=== PATIENT | female | born 1935 | race Caucasian/White ===

== ENCOUNTER 2017-10-20 17:24 | Inpatient (IN) | payer MEDICARE ==
[~2017-10-20] VITALS: Ht 165.1 cm; Wt 56.7 kg
--- NOTE | 2017-10-20 00:45 | NUR ---
RECEIVED A CALL FROM SHAHLA, PHARMACY REGARDING HALDOL IM X 1 ORDER, PER SHAHLA TO CLARIFY WITH MD IF THE MD WANTS HALDOL LACTATE OR HALDOL DECANOATE, PLACED A CALL AND SPOKE TO YEISON MIRANDA PER RUBEN SHE DIDN'T ORDER HALDOL, CALLED PHARMACY AFTER HOURS AND SHAHLA, PHARMACY INFORMED. Addendum: 10/21/17 at 0454 by HILDA MATOS RN INCORRECT TIME OF DOCUMENTATION Addendum: 10/21/17 at 0455 by HILDA MATOS RN INCORRECT DATE ENTERED
[2017-10-20] MEDS ORDERED: AMIN30LI4 PO (17:35)
[2017-10-20] MEDS ORDERED: SACC250C PO (17:35)
[2017-10-20] MEDS ORDERED: AMLO10TA6 PO (17:35)
[2017-10-20] MEDS ORDERED: ACET-868 PO (17:35)
[2017-10-20] MEDS ORDERED: BENA20TA9 PO (17:35)
[2017-10-20] MEDS ORDERED: CYCL30DR EACHEYE (17:35)
[2017-10-20] MEDS ORDERED: MIRT15TA PO (17:35)
[2017-10-20] MEDS ORDERED: POLY17PO4 PO (17:35)
[2017-10-20] MEDS ORDERED: MAGN400O6 PO (17:35)
[2017-10-20] MEDS ORDERED: LACT-215 PO (17:35)
[2017-10-20] MEDS ORDERED: BISA10SU8 RC (17:35)
[2017-10-20] MEDS ORDERED: LORA0.5T PO (17:35)
[2017-10-20] MEDS ORDERED: DOCU-141 PO (17:35)
[2017-10-20] MEDS ORDERED: NA P133E RC (17:35)
[2017-10-20] MEDS ORDERED: QUET25TA PO ×2 (17:35)
[2017-10-20] MEDS ORDERED: FERR325T23 PO (17:35)
[2017-10-20] MEDS ORDERED: MULT-447 PO (17:35)
[2017-10-20] MEDS ORDERED: PANT40TA2 PO (17:35)
[2017-10-20] MEDS ORDERED: RIVA1PAT3 TD (17:36)
--- NOTE | 2017-10-20 18:10 | NUR ---
SPOKE TO DAUGHTER OVER THE PHONE AND UPDATED WITH POC. MD MADE AWARE THAT PT IS AGITATED BOTH VERBALLY AND PHYSICALLY AND UNABLE TO DO IV INSERTION AT THIS TIME.
--- NOTE | 2017-10-20 18:12 | NUR ---
[facility]
[2017-10-20] MEDS ORDERED: OLANZAPINE 10 MG VIAL IM ONE ×2 (18:34→19:00)
--- NOTE | 2017-10-20 18:37 | NUR ---
MELINDA AT BS.
[2017-10-20 19:26] LABS: BASOPHILS # (AUTO) 0.1 /CMM (0.0-0.2); EOSINOPHILS % (AUTO) 1.5 % (0.0-6.0); HEMATOCRIT 35 % (33-45); HEMOGLOBIN 12.1 g/dL (11.5-14.8); LYMPHOCYTES # (AUTO) 2.3 /CMM (0.8-4.8); LYMPHOCYTES % (AUTO) 24.4 % (20.0-44.0); MEAN CORPUSCULAR HGB CONC 35 g/dl (31.0-36.0); MEAN CORPUSCULAR VOLUME 92 fL (82-100); MONOCYTES # (AUTO) 0.8 /CMM (0.1-1.30); MONOCYTES % (AUTO) 8.8 % (2.0-12.0); NEUTROPHILS % (AUTO) 64.3 % (43.0-81.0); PLATELET COUNT (AUTO) 387 /CMM (150-450); RDW COEFFICIENT OF VARIATION 12.8 (11.5-15.0); RED BLOOD CELL COUNT(AUTO) 3.81 MIL/uL (4.0-5.2); WHITE BLOOD COUNT (AUTO) 9.3 K/uL (4.3-11.0)
[2017-10-20] MEDS ORDERED: HALOPERIDOL DECANOATE IM 100 MG/ML AMPUL IM ONE (19:30)
[2017-10-20 19:39] LABS: APPEARANCE,URINE Cloudy (CLEAR); BILIRUBIN,URINE SMALL (NEGATIVE); BLOOD, URINE Large Ery/uL (NEGATIVE); COLOR,URINE Brown (YELLOW); KETONES,URINE Negative (NEGATIVE); LEUKOCYTE ESTERASE ,URINE Large (NEGATIVE); NITRITE, URINE Positive (NEGATIVE); PROTEIN,URINE 100 mg/dl (NEGATIVE); UGLUCOSE Negative (NEGATIVE)
[2017-10-20 19:40] LABS: CALCIUM, SERUM 9.4 mg/dL (8.5-10.1); CARBON DIOXIDE 25 mmol/L (21-32); CHLORIDE 105 mmol/L (98-107); CREATININE 0.9 mg/dL (0.6-1.3); GLUCOSE 93 mg/dL (74-106); SODIUM SERUM 141 mmol/L (136-145); UREA NITROGEN, BLOOD 26 mg/dL (7-18)
[2017-10-20 19:43] LABS: INR 0.94 (0.85-1.15)
[2017-10-20 19:49] LABS: TROPONIN I < 0.017 ng/mL (0.00-0.056)
[2017-10-20 19:53] LABS: BACTERIA,URINE 4+ /HPF (None Seen); RBC,URINE TOO NUMEROUS TO COUN /HPF (0-2); WBC,URINE TOO NUMEROUS TO COUN /HPF (0-3)
[2017-10-20 19:54] LABS: SQUAMOUS EPITHELIAL CELL,UR Few /HPF (None Seen)
[2017-10-20] MEDS ORDERED: ACETAMINOPHEN 325 MG TABLET PO PRN (21:00)
[2017-10-20] MEDS ORDERED: MAGNESIUM HYDROXIDE 30 ML UDC PO PRN (21:00)
[2017-10-20] MEDS ORDERED: MAG HYDROX/AL HYDROX/SIMETH 30 ML UDC PO PRN (21:00)
[2017-10-20] MEDS ORDERED: Z GUARD REMEDY 2 OZ OINT TP PRN (21:00)
[2017-10-20] MEDS ORDERED: HYDROCODONE/APAP 5/325MG 1 EACH TABLET PO PRN (21:00)
[2017-10-20] MEDS ORDERED: ONDANSETRON HCL/PF 4 MG/2 ML VIAL IVP PRN (21:00)
--- NOTE | 2017-10-20 21:10 | NUR ---
REPORT GIVEN TO HILDA HATHAWAY FOR MS 202.
[2017-10-20 21:40] VITALS: BP 140/62
--- NOTE | 2017-10-20 21:40 | NUR ---
MS RN NOTES RECEIVED PT FROM ER VIA STRETCHER. TRANSFERRED TO BED SAFELY. PT IS AWAKE, A/O X 1,CONFUSED AND VERBALLY RESPONSIVE. PT WITH EPISODE OF BEING AGGRESSIVE, SCREAMING AND HITTING. IV SITE ON RFA G # 20 INTACT AND PATENT, NO S/S OF INFILTRATION NOTED. FC IS INTACT AND PATENT, DRAINING WELL WITH YELLOW URINE. BODY CHECK DONE. DENIES ANY PAIN OR DISCOMFORT AT THIS TIME. ALL NEEDS ATTENDED AND MET. KEPT COMFORTABLE. SAFETY PRECAUTIONS OBSERVED. CALL LIGHT WITHIN REACH. WILL CONT TO MONITOR PT CLOSELY.
[2017-10-20 22:00] VITALS: BP 140/62
[2017-10-20] MEDS ORDERED: CEFTRIAXONE 1 G VIAL ONE (22:35)
[2017-10-20] MEDS: IV D5/0.45 NACL 1,000 ML IV PRN (22:40)
[2017-10-20] MEDS: CEFTRIAXONE 1 G in IV NS 0.9% 50 ML IV SCH (22:41)
--- NOTE | 2017-10-20 23:00 | NUR ---
PT WITH EPISODES OF TALKING TO HER SELF AND SCREAMING . TALKED TO THE PT IN A CALMLY MANNER. SAFETY PRECAUTIONS OBSERVED. WILL MONITOR PT CLOSELY.
--- NOTE | 2017-10-21 00:45 | NUR ---
RECEIVED A CALL FROM SHAHLA, PHARMACY REGARDING HALDOL IM X 1 ORDER, PER SHAHLA TO CLARIFY WITH MD IF THE MD WANTS HALDOL LACTATE OR HALDOL DECANOATE, PLACED A CALL AND SPOKE TO YEISON MIRANDA PER RUBEN SHE DIDN'T ORDER HALDOL, CALLED PHARMACY AFTER HOURS AND SHAHLA, PHARMACY INFORMED.
[2017-10-21] MEDS ORDERED: MAGNESIUM HYDROXIDE 30 ML UDC PO PRN (02:00)
[2017-10-21] MEDS ORDERED: NA PHOS,M-B/NA PHOS,DI-BA 1 EA ENEMA RC PRN (02:00)
[2017-10-21] MEDS ORDERED: BISACODYL SUPP (10 MG) 10 MG/SUPP.RECT SUPP.RECT RC PRN (02:00)
--- NOTE | 2017-10-21 04:55 | NUR ---
[facility] A CALL TO [facility] AND SPOKE WITH PRADEEP SNIDER REGARDING DATE WHEN PNA AND FLU VACCINE WAS GIVEN .
--- NOTE | 2017-10-21 05:15 | NUR ---
CLARIFIED WITH YEISON MIRANDA IF PT IS FOR TELE OR MED SURG, PER YEISON MIRANDA ADMIT PT TO MED SURG.
--- NOTE | 2017-10-21 06:31 | NUR ---
MS RN NOTES PT IS AWAKE, A/O X 1, CONFUSED AND VERBALLY RESPONSIVE. PT WITH ON AND OFF EPISODE OF BEING AGGRESSIVE, SCREAMING AND HITTING. IV SITE ON RFA G # 20 INTACT AND PATENT, NO S/S OF INFILTRATION NOTED. IVF INFUSING WELL. FC IS INTACT AND PATENT, DRAINING WELL WITH YELLOW URINE. DENIES ANY PAIN OR DISCOMFORT AT THIS TIME. ALL NEEDS ATTENDED AND MET. KEPT COMFORTABLE. SAFETY PRECAUTIONS OBSERVED. CALL LIGHT WITHIN REACH. WILL ENDORSE TO NEXT SHIFT FRO FINN.
[2017-10-21 07:17] LABS: BASOPHILS % (AUTO) 0.5 % (0.0-2.0); EOSINOPHILS % (AUTO) 2.6 % (0.0-6.0); HEMATOCRIT 35 % (33-45); HEMOGLOBIN 11.9 g/dL (11.5-14.8); LYMPHOCYTES # (AUTO) 1.6 /CMM (0.8-4.8); LYMPHOCYTES % (AUTO) 22.2 % (20.0-44.0); MEAN CORPUSCULAR HGB CONC 34 g/dl (31.0-36.0); MEAN CORPUSCULAR VOLUME 94 fL (82-100); MONOCYTES # (AUTO) 0.8 /CMM (0.1-1.30); MONOCYTES % (AUTO) 10.6 % (2.0-12.0); NEUTROPHILS # (AUTO) 4.7 /CMM (1.8-8.9); NEUTROPHILS % (AUTO) 64.1 % (43.0-81.0); PLATELET COUNT (AUTO) 304 /CMM (150-450); RDW COEFFICIENT OF VARIATION 14.1 (11.5-15.0); RED BLOOD CELL COUNT(AUTO) 3.69 MIL/uL (4.0-5.2); WHITE BLOOD COUNT (AUTO) 7.3 K/uL (4.3-11.0)
--- NOTE | 2017-10-21 07:30 | NUR ---
RN OPEN NOTES Received report from night baker nurse. patient is in bed, confused, combative. bed in low position, locked and two side rails are up. call light within reach for safety. no signs and symptoms of distress. will continue to assess and monitor patient
[2017-10-21 07:44] LABS: CALCIUM, SERUM 8.7 mg/dL (8.5-10.1); CARBON DIOXIDE 28 mmol/L (21-32); CHLORIDE 106 mmol/L (98-107); CREATININE 0.8 mg/dL (0.6-1.3); GLUCOSE 86 mg/dL (74-106); POTASSIUM 3.1 mmol/L (3.5-5.1); SODIUM SERUM 142 mmol/L (136-145); UREA NITROGEN, BLOOD 20 mg/dL (7-18)
[2017-10-21] MEDS: DOCUSATE SODIUM 100 MG CAPSULE PO SCH ×2 (07:47→09:04)
[2017-10-21] MEDS: BOOST PLUS FOOD-CHOCLATE 237 ML BOX PO SCH ×3 (07:47→16:18)
[2017-10-21] MEDS: QUETIAPINE FUMARATE 25 MG TABLET PO SCH ×4 (07:48→16:18)
[2017-10-21] MEDS: PROSOURCE / PROSTAT (PYXIS) 30 ML UDC PO SCH ×2 (07:48→09:03)
[2017-10-21] MEDS: MULTIVIT, IRON, MIN NO. 8, FA 1 TAB PO SCH ×2 (07:48→09:04)
[2017-10-21] MEDS: AMLODIPINE BESYLATE 10 MG TABLET PO SCH ×2 (07:48→09:04)
[2017-10-21] MEDS: BENAZEPRIL HCL 20 MG TABLET PO SCH ×2 (07:48→09:03)
[2017-10-21] MEDS: POLYETHYLENE GLYCOL 3350 17 GM POWD.PACK PO SCH ×2 (07:48→09:03)
[2017-10-21] MEDS: FERROUS SULFATE (325 MG) 325 MG/TAB TABLET PO SCH ×2 (07:48→09:04)
[2017-10-21 07:55] LABS: CHOLESTEROL 182 mg/dL (<200); HDL CHOLESTEROL 51 mg/dL (40-60); LDL 114 mg/dL (0-99); THYROID STIMULATING HORMONE 1.589 uIU/mL (0.358-3.74); TRIGLYCERIDES 130 mg/dL (30-150)
[2017-10-21 08:08] VITALS: BP 119/78
[2017-10-21] MEDS ORDERED: Medication Not On Formulary EA (Cyclosporine (Restasis) 1 DROP) EACHEYE SCH (09:00)
[2017-10-21] MEDS ORDERED: Medication Not On Formulary EA (Saccharomyces Boulardii (Florastor) 250 MG) PO SCH (09:00)
[2017-10-21] MEDS ORDERED: PANTOPRAZOLE 40 MG VIAL IV SCH (09:00)
[2017-10-21] MEDS: RIVASTIGMINE TARTRATE 4.6 MG PATCH.TD24 TD SCH (09:04)
--- NOTE | 2017-10-21 09:32 | NUR ---
WOUND CARE CONSULT: UNABLE TO SEE SACRAL AREA DUE TO PT AGITATED AND COMBATIVE AT TIMES. PT MOVES ABOUT IN BED FREQUENTLY. RECOMMENDATIONS MADE FOR SKIN PROTECTION. PT IS VERY THIN AND BONY. ALL SKIN PROTECTION MEASURES IN PLACE. WILL SEE PRNAbdifatah GARNICA IN AGREEMENT WITH PLAN OF CARE.
[2017-10-21] MEDS ORDERED: POTASSIUM CHLORIDE 10 MEQ/50 ML PREMIXED IVPB FOR PERIPHERAL LINE IV ONE (10:00)
[2017-10-21] MEDS ORDERED: LORAZEPAM 1 MG TABLET PO PRN (10:30)
[2017-10-21] MEDS: Potassium Chloride 10 MEQ in IV D5W 50 ML IV SCH ×4 (11:55→14:29)
[2017-10-21] MEDS: IV D5/0.45 NACL 1,000 ML IV PRN (12:59)
[2017-10-21 16:22] VITALS: BP 103/61
--- NOTE | 2017-10-21 17:00 | NUR ---
IV SITE INFILTRATED. PATIENT IS COMBATIVE AND REFUSING TO LET ME REMOVED THE IV SITE AND START A NEW ONE
--- NOTE | 2017-10-21 17:40 | NUR ---
CALLED ER AND REQUESTED HELP FROM ER MALE NURSE TO START A NEW IV DUE TO PATIENT BEING COMBATIVE. THEY WILL TRY TO SEND SOMEONE UP
--- NOTE | 2017-10-21 18:15 | NUR ---
NEW IV STARTED. PATIENT WAS AGITATED AND COMBATIVE.
--- NOTE | 2017-10-21 18:30 | NUR ---
DR GARCIA NOTIFIED REGARDING BLOOD CULTURE POSITIVE FOR [facility]. PENDING REPLY
--- NOTE | 2017-10-21 18:40 | NUR ---
DR GARCIA REPLIED: "OK TY"
--- NOTE | 2017-10-21 18:50 | NUR ---
RN CLOSING NOTES PATIENT IS IN BED, AWAKE. AGITATED AND COMBATIVE. ALL PATIENT NEEDS ANTICIPATED AND ATTENDED FOR. BED IN LOW POSITION, LOCKED AND TWO SIDE RAILS ARE UP. CALL LIGHT WITHIN REACH FOR SAFETY. NO NEW CHANGES DURING THE SHIFT. NO SIGNS AND SYMPTOMS OF DISTRESS. WILL ENDORSE TO BUILD AUTOMATION ENGINEER NURSE
--- NOTE | 2017-10-21 19:30 | NUR ---
MS RN OPENING NOTES: PATIENT IN BED, AOX1, ON ROOM AIR, BREATHING EVEN AND UNLABORED, APPEARS CALM AND THIS TIME, BUT CONFUSED. PIV OVER RFA G 22 INTACT AND INFUSING WELL WITH D5 1/2 NS RUNNING AT 75 ML/HR, WITH SLEEVE IN PLACE. GRACE CATHETER IN PLACE DRAINING CLEAR YELLOW URINE. PROVIDED FOR COMFORT AND SAFETY. BED IN LOWEST AND LOCKED POSITION, SIDERAILS UP X 3, BED ALARMS ON. WILL CONT TO MONITOR.
[2017-10-21 20:00] VITALS: BP 98/60
[2017-10-21] MEDS: CEFTRIAXONE 1 G in IV NS 0.9% 50 ML IV SCH (20:39)
[2017-10-21 21:30] VITALS: BP 118/49
[2017-10-21] MEDS: MIRTAZAPINE 15 MG TABLET PO SCH (21:34)
[2017-10-21] MEDS: QUETIAPINE FUMARATE 100 MG TABLET PO SCH (21:57)
--- NOTE | 2017-10-21 21:57 | NUR ---
RN NOTES: CALLED MANAGER DISCOVERY PHARMACIST, SEROQUEL 150 MG HS CANNOT BE SCANNED, KEPT SAYING UNKNOWN NDC NUMBER. SPOKE TO JUAN CARLOS (PHARMACIST MANAGER DISCOVERY), VERIFIED MEDICATION WITH HIM. PER PHARMACIST, OK TO GIVE BUT HAVE IT CHECKED WITH ANOTHER RN. VERIFIED MEDICATION AND DOSE WITH MAG STEVENS.
[2017-10-21] MEDS ORDERED: QUETIAPINE FUMARATE 25 MG TABLET PO SCH (22:00)
--- NOTE | 2017-10-22 05:00 | NUR ---
RN NOTES: MORNING CARE DONE, PATIENT WAS VERY COMBATIVE, WAS KICKING AND TRYING TO BITE NURSES. WOUND TREATMENT DONE. PATIENT CALMED DOWN AFTER SHE WAS CLEANED.
[2017-10-22] MEDS: IV D5/0.45 NACL 1,000 ML IV PRN ×2 (05:47→18:41)
--- NOTE | 2017-10-22 06:48 | NUR ---
MS RN CLOSING NOTES: PATIENT IN BED, AOX1, CONFUSED. ON ROOM AIR, BREATHING EVEN AND UNLABORED. PATIENT NOTED TO BE CONFUSED, UNCOOPERATIVE, AND WAS NOTED TO BE TALKING TO HERSELF IN HER MESCALERO APACHE LANGUAGE. REFUSED SNACKS AND BOOST AT TIMES, STILL NOTED TO HAVE POOR PO INTAKE. PIV OVER RFA G 22 INTACT AND PATENT, INFUSING WELL WITH D51/2 NS RUNNING AT 75 ML/HR. GRACE CATHETER DRAINING CLOUDY YELLOW URINE. DUE MEDS GIVEN, PROVIDED FOR COMFORT AND SAFETY. BED IN LOWEST AND LOCKED POSITION, SIDERAILS UP X 3, BED ALARMS ON. WILL ENDORSE TO AM RN FOR FINN.
--- NOTE | 2017-10-22 07:30 | NUR ---
RN OPEN NOTES RECEIVED REPORT FROM SCHOOL RESOURCE OFFICER RN. PATIENT IS IN BED, AWAKE AND CONFUSED. ORIENTED TO NAME ONLY. NO SIGNS AND SYMPTOMS OF DISTRESS. BED IN LOW POSITION, LOCKED AND TWO SIDE RAILS ARE UP. CALL LIGHT WITHIN REACH FOR SAFETY. WILL CONTINUE TO MONITOR AND ASSESS PATIENT
[2017-10-22 08:00] VITALS: BP 131/64
[2017-10-22] MEDS: BOOST PLUS FOOD-CHOCLATE 237 ML BOX PO SCH ×2 (08:27→16:07)
[2017-10-22] MEDS: QUETIAPINE FUMARATE 25 MG TABLET PO SCH ×3 (08:32→16:08)
[2017-10-22] MEDS: MULTIVIT, IRON, MIN NO. 8, FA 1 TAB PO SCH (08:32)
[2017-10-22] MEDS: PANTOPRAZOLE 40 MG TABLET.DR PO SCH (08:34)
[2017-10-22] MEDS: DOCUSATE SODIUM 100 MG CAPSULE PO SCH (08:34)
[2017-10-22] MEDS: POTASSIUM CHLORIDE 20 MEQ TAB.PRT.SR PO SCH (08:35)
[2017-10-22] MEDS: POLYETHYLENE GLYCOL 3350 17 GM POWD.PACK PO SCH (08:35)
[2017-10-22] MEDS: FERROUS SULFATE (325 MG) 325 MG/TAB TABLET PO SCH (08:35)
[2017-10-22] MEDS: RIVASTIGMINE TARTRATE 4.6 MG PATCH.TD24 TD SCH (08:35)
[2017-10-22] MEDS: AMLODIPINE BESYLATE 10 MG TABLET PO SCH (08:39)
[2017-10-22] MEDS: BENAZEPRIL HCL 20 MG TABLET PO SCH (08:40)
[2017-10-22] MEDS: PROSOURCE / PROSTAT (PYXIS) 30 ML UDC PO SCH (08:41)
[2017-10-22] MEDS ORDERED: FEE PK DOSING 1 MIN EA MC ONE (10:17)
[2017-10-22] MEDS: VANCOMYCIN 1 GM in IV D5W 250 ML IV SCH (11:16)
--- NOTE | 2017-10-22 14:45 | NUR ---
PATIENT'S FAMILY FED PATIENT HAMBERGER AND NIGERIAN FRIES. PATIENT ATE 75% OF THE BURGER AND 6 NIGERIAN FRIES
--- NOTE | 2017-10-22 16:00 | NUR ---
PER ASCENCION FERNANDEZ TO ORDER 1:1 SITTER IF NEEDED
[2017-10-22 16:09] VITALS: BP 97/52
--- NOTE | 2017-10-22 19:05 | NUR ---
RN CLOSING NOTES PATIENT IS IN BED, AWAKE. AGITATED AND COMBATIVE. ALL PATIENT NEEDS ANTICIPATED AND ATTENDED FOR. BED IN LOW POSITION, LOCKED AND TWO SIDE RAILS ARE UP. CALL LIGHT WITHIN REACH FOR SAFETY. NO NEW CHANGES DURING THE SHIFT. NO SIGNS AND SYMPTOMS OF DISTRESS. WILL ENDORSE TO WEATHER CLERK NURSE
--- NOTE | 2017-10-22 19:07 | NUR ---
RN CLOSING NOTES PATIENT IS IN BED, AWAKE AND ALERT TO SELF ONLY. 1:1 SITTER. ALL PATIENT NEEDS ANTICIPATED AND ATTENDED FOR. BED IN LOW POSITION, LOCKED AND TWO SIDE RAILS ARE UP. CALL LIGHT WITHIN REACH FOR SAFETY. NO NEW CHANGES DURING THE SHIFT. NO SIGNS AND SYMPTOMS OF DISTRESS. WILL ENDORSE TO REGISTERED NURSE BONE MARROW TRANSPLANT NURSE Addendum: 10/22/17 at 1908 by RONNY FOY RN WRONG PATIENT DOCUMENTATION
[2017-10-22 20:00] VITALS: BP 108/59
[2017-10-22] MEDS: CEFTRIAXONE 1 G in IV NS 0.9% 50 ML IV SCH (21:26)
[2017-10-22] MEDS: QUETIAPINE FUMARATE 100 MG TABLET PO SCH (21:27)
[2017-10-22] MEDS: MIRTAZAPINE 15 MG TABLET PO SCH (21:27)
[2017-10-23] MEDS: VANCOMYCIN 1 GM in IV D5W 250 ML IV SCH ×2 (05:08→23:40)
--- NOTE | 2017-10-23 06:13 | NUR ---
MS RN NOTES AWAKE & RESPONSIVE. NOT IN ANY DISTRESS. NO SOB NOTED. DENIES ANY PAIN OR DISCOMFORT AT THIS TIME. WITH IVF INFUSING WELL. MONITORED ACCORDINGLY. CALL LIGHT WITHIN REACH. BED IN LOWEST POSITION. SR UP X 3 WITH BED ALARM ON FOR SAFETY. WILL ENDORSE TO NEXT SHIFT.
[2017-10-23 06:22] LABS: CALCIUM, SERUM 8.1 mg/dL (8.5-10.1); CARBON DIOXIDE 29 mmol/L (21-32); CHLORIDE 108 mmol/L (98-107); CREATININE 0.8 mg/dL (0.6-1.3); GLUCOSE 115 mg/dL (74-106); POTASSIUM 3.4 mmol/L (3.5-5.1); SODIUM SERUM 142 mmol/L (136-145); UREA NITROGEN, BLOOD 12 mg/dL (7-18)
--- NOTE | 2017-10-23 07:42 | NUR ---
RN OPEN NOTES RECEIVED REPORT FROM POLE CLASSIFIER NURSE. PATIENT IS IN BED. PATIENT IS AWAKE, ALERT TO SELF ONLY. NO SIGNS AND SYMPTOMS OF DISTRESS. BED IN LOW POSITION, LOCKED AND TWO SIDE RAILS ARE UP. CALL LIGHT WITHIN REACH. WILL CONTINUE TO ASSESS AND MONITOR PATIENT
[2017-10-23 08:00] VITALS: BP 124/74
--- NOTE | 2017-10-23 08:59 | NUR ---
PATIENT UNABLE TO SWALLOW BIG PILLS. WILL CRUSH MEDS THAT CAN BE CRUSHED AND WILL TALK WITH MD TO CHANGE TO LIQUID FORM AND CRUSHABLE.
[2017-10-23] MEDS: FERROUS SULFATE (325 MG) 325 MG/TAB TABLET PO SCH (09:00)
[2017-10-23] MEDS: POTASSIUM CHLORIDE 20 MEQ TAB.PRT.SR PO SCH (09:00)
[2017-10-23] MEDS: DOCUSATE SODIUM 100 MG CAPSULE PO SCH (09:00)
[2017-10-23] MEDS: BOOST PLUS FOOD-CHOCLATE 237 ML BOX PO SCH ×2 (09:01→16:39)
[2017-10-23] MEDS: PROSOURCE / PROSTAT (PYXIS) 30 ML UDC PO SCH (09:07)
[2017-10-23] MEDS: POLYETHYLENE GLYCOL 3350 17 GM POWD.PACK PO SCH (09:07)
[2017-10-23] MEDS: QUETIAPINE FUMARATE 25 MG TABLET PO SCH ×3 (09:08→16:39)
[2017-10-23] MEDS: AMLODIPINE BESYLATE 10 MG TABLET PO SCH (09:09)
[2017-10-23] MEDS: PANTOPRAZOLE 40 MG TABLET.DR PO SCH (09:09)
[2017-10-23] MEDS: MULTIVIT, IRON, MIN NO. 8, FA 1 TAB PO SCH (09:09)
[2017-10-23] MEDS: BENAZEPRIL HCL 20 MG TABLET PO SCH (09:10)
[2017-10-23] MEDS: RIVASTIGMINE TARTRATE 4.6 MG PATCH.TD24 TD SCH (09:15)
--- NOTE | 2017-10-23 11:30 | NUR ---
PATIENT ATE 2 BUNS WITH EGGS AND BUTTER. PLUS FEW SIPS FROM HER BOOST
[2017-10-23] MEDS: IV D5/0.45 NACL 1,000 ML IV PRN (13:15)
[2017-10-23 16:00] VITALS: BP 124/59
[2017-10-23] MEDS ORDERED: POTASSIUM CHLORIDE 20 MEQ POWDER PACKET GT ONE (16:30)
[2017-10-23] MEDS ORDERED: POTASSIUM CHLORIDE 20 MEQ POWDER PACKET PO ONE (16:30)
--- NOTE | 2017-10-23 16:50 | NUR ---
PATIENT ATE 25% OF BURGER (FAMILY GOT FROM [employer]) AND 25% OF MILKSHAKE
--- NOTE | 2017-10-23 18:55 | NUR ---
RN CLOSING NOTES PATIENT IS IN BED, AWAKE. AGITATED AND COMBATIVE. ALL PATIENT NEEDS ANTICIPATED AND ATTENDED FOR. BED IN LOW POSITION, LOCKED AND TWO SIDE RAILS ARE UP. CALL LIGHT WITHIN REACH FOR SAFETY. NO NEW CHANGES DURING THE SHIFT. NO SIGNS AND SYMPTOMS OF DISTRESS. WILL ENDORSE TO SHIP'S SURVEYOR NURSE
--- NOTE | 2017-10-23 19:40 | NUR ---
MS RN NOTE: PATIENT RESTING IN BED, NO ACUTE DISTRESS NOTED. BREATHING EVEN AND UNLABORED, NO SOB NOTED. IV TO RFA IN PLACE, INFUSING D5 1/2 NS AT 75ML/HR. GRACE CATHETER IN PLACE, EMPTY AT THIS TIME. BED LOCKED AND IN LOWEST POSITION, CALL LIGHT IN REACH. WILL CONTINUE TO MONITOR.
[2017-10-23] MEDS: CEFTRIAXONE 1 G in IV NS 0.9% 50 ML IV SCH (21:15)
[2017-10-23] MEDS: QUETIAPINE FUMARATE 100 MG TABLET PO SCH (21:15)
[2017-10-23] MEDS: MIRTAZAPINE 15 MG TABLET PO SCH (21:16)
--- NOTE | 2017-10-24 03:00 | NUR ---
MS RN NOTE: PATIENT SLEEPING IN BED, NO ACUTE DISTRESS NOTED. BREATHING EVEN AND UNLABORED, NO SOB NOTED. BED LOCKED AND IN LOWEST POSITION, CALL LIGHT IN REACH. WILL CONTINUE TO MONITOR.
--- NOTE | 2017-10-24 06:20 | NUR ---
MS RN NOTE: PATIENT RESTING IN BED, NO ACUTE DISTRESS NOTED. BREATHING EVEN AND UNLABORED, NO SOB NOTED. IV TO RFA IN PLACE, INFUSING D5 1/2 NS AT 75ML/HR. GRACE CATHETER IN PLACE, EMPTIED 1500 ML OF CLEAR YELLOW URINE. BED LOCKED AND IN LOWEST POSITION, CALL LIGHT IN REACH. WILL ENDORSE TO DAY NURSE TO CONTINUE WITH PLAN OF CARE.
[2017-10-24 06:38] LABS: CALCIUM, SERUM 8.4 mg/dL (8.5-10.1); CARBON DIOXIDE 27 mmol/L (21-32); CHLORIDE 111 mmol/L (98-107); CREATININE 0.8 mg/dL (0.6-1.3); GLUCOSE 112 mg/dL (74-106); MAGNESIUM 1.8 mg/dL (1.8-2.4); PHOSPHORUS 3.2 mg/dL (2.5-4.9); POTASSIUM 3.8 mmol/L (3.5-5.1); SODIUM SERUM 144 mmol/L (136-145); UREA NITROGEN, BLOOD 11 mg/dL (7-18)
[2017-10-24 06:54] LABS: BASOPHILS % (AUTO) 0.9 % (0.0-2.0); EOSINOPHILS % (AUTO) 4.6 % (0.0-6.0); HEMATOCRIT 31 % (33-45); HEMOGLOBIN 10.6 g/dL (11.5-14.8); LYMPHOCYTES # (AUTO) 1.4 /CMM (0.8-4.8); LYMPHOCYTES % (AUTO) 26.2 % (20.0-44.0); MEAN CORPUSCULAR HGB CONC 34 g/dl (31.0-36.0); MEAN CORPUSCULAR VOLUME 94 fL (82-100); MONOCYTES # (AUTO) 0.6 /CMM (0.1-1.30); MONOCYTES % (AUTO) 11.6 % (2.0-12.0); NEUTROPHILS # (AUTO) 3.1 /CMM (1.8-8.9); NEUTROPHILS % (AUTO) 56.7 % (43.0-81.0); PLATELET COUNT (AUTO) 240 /CMM (150-450); RED BLOOD CELL COUNT(AUTO) 3.34 MIL/uL (4.0-5.2); WHITE BLOOD COUNT (AUTO) 5.5 K/uL (4.3-11.0)
[2017-10-24] MEDS: PANTOPRAZOLE 40 MG TABLET.DR PO SCH ×2 (07:30→08:36)
--- NOTE | 2017-10-24 07:30 | NUR ---
MS/RN Patient received Patient received from car shifter. Sleeping soundly at this time, does not appear to be in any distress. Side rails X3 in upright position, bed in low setting, brakes locked. Call light within easy reach, will continue to monitor and ensure safety.
[2017-10-24 07:58] VITALS: BP 113/84
[2017-10-24 08:00] VITALS: BP 113/84
[2017-10-24] MEDS: POLYETHYLENE GLYCOL 3350 17 GM POWD.PACK PO SCH ×2 (08:35→09:00)
[2017-10-24] MEDS: RIVASTIGMINE TARTRATE 4.6 MG PATCH.TD24 TD SCH (08:35)
[2017-10-24] MEDS: POTASSIUM CHLORIDE 20 MEQ TAB.PRT.SR PO SCH ×2 (08:36→09:00)
[2017-10-24] MEDS: AMLODIPINE BESYLATE 10 MG TABLET PO SCH ×2 (08:36→09:00)
[2017-10-24] MEDS: QUETIAPINE FUMARATE 25 MG TABLET PO SCH ×3 (08:36→17:00)
[2017-10-24] MEDS: DOCUSATE SODIUM 100 MG CAPSULE PO SCH ×2 (08:36→09:00)
[2017-10-24] MEDS: FERROUS SULFATE (325 MG) 325 MG/TAB TABLET PO SCH ×2 (08:36→09:00)
[2017-10-24] MEDS: PROSOURCE / PROSTAT (PYXIS) 30 ML UDC PO SCH ×2 (08:37→09:00)
[2017-10-24] MEDS: BOOST PLUS FOOD-CHOCLATE 237 ML BOX PO SCH ×2 (08:37→17:00)
[2017-10-24] MEDS: BENAZEPRIL HCL 20 MG TABLET PO SCH (08:38)
[2017-10-24] MEDS: MULTIVIT, IRON, MIN NO. 8, FA 1 TAB PO SCH (09:00)
--- NOTE | 2017-10-24 09:00 | NUR ---
MS/RN Medications Patient refusing to take any medications.
--- NOTE | 2017-10-24 10:45 | NUR ---
MS/RN S/B Dr Quispe Seen by Dr Quispe - medications adjusted.
--- NOTE | 2017-10-24 14:18 | NUR ---
MS/RN S/B Nicole Robins NP Seen by COTTON PICKING MACHINE OPERATOR - labs ordered for tomorrow.
[2017-10-24 16:00] VITALS: BP 118/51
--- NOTE | 2017-10-24 16:00 | NUR ---
MS/RN Coleman removed Coleman catheter removed as patient pulling at tube and causing bleeding. Patient placed with diaper.
[2017-10-24] MEDS: VANCOMYCIN 1 GM in IV D5W 250 ML IV SCH (17:00)
--- NOTE | 2017-10-24 17:43 | NUR ---
MS/RN Refusing medications Patient refusing to take any medications.
--- NOTE | 2017-10-24 18:21 | NUR ---
MS/RN End note Patient remains confused and refusing any medications. Heplock pulled out and refusing reinsertion. MD aware. Per Nicole, patient's daughter is refusing for patient to be sent to locked facility upon discharge as she feels that she is regressing. Possible discharge to [facility]. Safety measures in place, bed in low setting with side rails X3 in upright position. Call light within reach, will endorse to fast food shift supervisor.
--- NOTE | 2017-10-24 19:40 | NUR ---
MS RN NOTE: PATIENT RESTING IN BED, NO ACUTE DISTRESS NOTED. BREATHING EVEN AND UNLABORED, NO SOB NOTED. NEW IV STARTED TO RFA #22, WITH GOOD BLOOD RETURN. BED LOCKED AND IN LOWEST POSITION, CALL LIGHT IN REACH. WILL CONTINUE TO MONITOR.
[2017-10-24 20:00] VITALS: BP 135/74
[2017-10-24] MEDS: CEFTRIAXONE 1 G in IV NS 0.9% 50 ML IV SCH (20:42)
--- NOTE | 2017-10-24 20:45 | NUR ---
MS RN NOTE: PATIENT VANCO NOT GIVEN EARLIER DUE TO UNABLE TO START NEW IV. PHARMACY INFORMED THAT PATIENT NOW HAD IV ACCESS. PHARMACY TO PREPARE ADJUSTED VANCO DOSE FOR TONIGHT. WILL CONTINUE TO MONITOR.
[2017-10-24] MEDS: VANCOMYCIN 0.75 GM in IV D5W 250 ML IV SCH (21:30)
[2017-10-24] MEDS: MIRTAZAPINE 15 MG TABLET PO SCH (21:30)
[2017-10-24] MEDS: QUETIAPINE FUMARATE 100 MG TABLET PO SCH (21:30)
--- NOTE | 2017-10-25 06:15 | NUR ---
MS RN NOTE: PATIENT RESTING IN BED, NO ACUTE DISTRESS NOTED. BREATHING EVEN AND UNLABORED, NO SOB NOTED. IV TO RFA #[address] BED LOCKED AND IN LOWEST POSITION, CALL LIGHT IN REACH. WILL ENDORSE TO DAY NURSE TO CONTINUE WITH PLAN OF CARE.
[2017-10-25 06:44] LABS: BASOPHILS # (AUTO) 0.1 /CMM (0.0-0.2); EOSINOPHILS % (AUTO) 4.9 % (0.0-6.0); HEMATOCRIT 32 % (33-45); HEMOGLOBIN 11.1 g/dL (11.5-14.8); LYMPHOCYTES # (AUTO) 1.4 /CMM (0.8-4.8); LYMPHOCYTES % (AUTO) 22.4 % (20.0-44.0); MEAN CORPUSCULAR HGB CONC 34 g/dl (31.0-36.0); MEAN CORPUSCULAR VOLUME 94 fL (82-100); MONOCYTES # (AUTO) 0.6 /CMM (0.1-1.30); MONOCYTES % (AUTO) 10.4 % (2.0-12.0); NEUTROPHILS # (AUTO) 3.8 /CMM (1.8-8.9); NEUTROPHILS % (AUTO) 61.3 % (43.0-81.0); PLATELET COUNT (AUTO) 253 /CMM (150-450); RDW COEFFICIENT OF VARIATION 14.1 (11.5-15.0); RED BLOOD CELL COUNT(AUTO) 3.42 MIL/uL (4.0-5.2); WHITE BLOOD COUNT (AUTO) 6.2 K/uL (4.3-11.0)
[2017-10-25 07:01] LABS: CALCIUM, SERUM 8.7 mg/dL (8.5-10.1); CARBON DIOXIDE 29 mmol/L (21-32); CHLORIDE 108 mmol/L (98-107); CREATININE 0.8 mg/dL (0.6-1.3); GLUCOSE 100 mg/dL (74-106); MAGNESIUM 1.9 mg/dL (1.8-2.4); PHOSPHORUS 3.5 mg/dL (2.5-4.9); POTASSIUM 3.9 mmol/L (3.5-5.1); SODIUM SERUM 143 mmol/L (136-145); UREA NITROGEN, BLOOD 11 mg/dL (7-18)
[2017-10-25 08:00] VITALS: BP 123/59
--- NOTE | 2017-10-25 08:00 | NUR ---
MS RN NOTES PATIENT IN BED RESTING NO SOB OR ACUTE DISTRESS NOTED. PATIENT CONFUSED . PERIPHERAL IV INTACT PATENT. BED IN LOW LOCKED POSITION, CALL LIGHT WITHIN REACH. WILL CONTINUE TO MONITOR.
[2017-10-25] MEDS: FERROUS SULFATE (325 MG) 325 MG/TAB TABLET PO SCH (08:46)
[2017-10-25] MEDS: POLYETHYLENE GLYCOL 3350 17 GM POWD.PACK PO SCH (08:46)
[2017-10-25] MEDS: MULTIVIT, IRON, MIN NO. 8, FA 1 TAB PO SCH (08:46)
[2017-10-25] MEDS: DOCUSATE SODIUM 100 MG CAPSULE PO SCH (08:47)
[2017-10-25] MEDS: QUETIAPINE FUMARATE 25 MG TABLET PO SCH ×3 (08:47→16:42)
[2017-10-25] MEDS: POTASSIUM CHLORIDE 20 MEQ TAB.PRT.SR PO SCH (08:47)
[2017-10-25] MEDS: AMLODIPINE BESYLATE 10 MG TABLET PO SCH (08:47)
[2017-10-25] MEDS: BENAZEPRIL HCL 20 MG TABLET PO SCH (08:48)
[2017-10-25] MEDS: PROSOURCE / PROSTAT (PYXIS) 30 ML UDC PO SCH (08:48)
[2017-10-25] MEDS: RIVASTIGMINE TARTRATE 4.6 MG PATCH.TD24 TD SCH (08:48)
[2017-10-25] MEDS: BOOST PLUS FOOD-CHOCLATE 237 ML BOX PO SCH ×2 (08:49→16:42)
[2017-10-25] MEDS: PANTOPRAZOLE 40 MG TABLET.DR PO SCH (08:50)
--- NOTE | 2017-10-25 13:00 | NUR ---
MS RN NOTES PATIENT NOTED EATING HAMBURGER WHICH FAMILY PROVIDED. PATIENT FINISHED ONE HAMBURGER. WILL CONTINUE TO MONITOR. PATIENT APPEARS HAPPY. NO SIGNS OF AGITATION OR AGGRESSION. NO YELLING NOTED. WILL CONTINUE TO MONITOR.
[2017-10-25] MEDS ORDERED: LORA1TAB PO (14:16)
[2017-10-25] MEDS ORDERED: QUET100T PO (14:16)
[2017-10-25] MEDS ORDERED: NITR100C6 PO (14:16)
[2017-10-25] MEDS ORDERED: QUET25TA PO (14:16)
[2017-10-25] MEDS: VANCOMYCIN 0.75 GM in IV D5W 250 ML IV SCH (15:06)
[2017-10-25 15:48] VITALS: BP 104/51
--- NOTE | 2017-10-25 17:34 | NUR ---
MS RN NOTES PATIENT DISCHARGED TO [facility] WITH EMT IN STABLE CONDITION. MD AWARE OF ABNORMAL LABS. ALL BELONGINGS ACCOUNTED FOR, BELONGING LIST SIGNED BY TWO RNS DUE TO PATIENT BEING CONFUSED. REPORT GIVEN TO MILLY HATHAWAY. ALSO AT BEDSIDE TO EMT. PATIENT CONFUSED. PERIPHERAL IV REMOVED WITH MINIMAL BLEEDING. ID BAND REMOVED. PATIENT TRANSFERRED BY EMT AMBULANCE. IV ANTIBIOTICS CHANGED TO PO.
== END 2017-10-25 17:34 | DRG 689 ==
LOC: ER 17:26 → MEDSG2 21:13
PROVIDERS: ADMIT Registered Nurse; ATTEND Registered Nurse
DX: N39.0 Urinary tract infection, site not specified (principal); G92 Toxic encephalopathy; N17.0 Acute kidney failure with tubular necrosis; E43 Unspecified severe protein-calorie malnutrition; F02.81 Dementia in other diseases classified elsewhere, unspecified severity, with behavioral disturbance; B95.7 Other staphylococcus as the cause of diseases classified elsewhere; G30.9 Alzheimer's disease, unspecified; R64 Cachexia; R62.7 Adult failure to thrive; F32.9 Major depressive disorder, single episode, unspecified; F29 Unspecified psychosis not due to a substance or known physiological condition; E78.5 Hyperlipidemia, unspecified; E87.6 Hypokalemia; F41.9 Anxiety disorder, unspecified; I10 Essential (primary) hypertension; K21.9 Gastro-esophageal reflux disease without esophagitis; D50.9 Iron deficiency anemia, unspecified; Z79.899 Other long term (current) drug therapy; Z68.20 Body mass index [BMI] 20.0-20.9, adult; L98.8 Other specified disorders of the skin and subcutaneous tissue; R33.9 Retention of urine, unspecified; R53.81 Other malaise; R73.9 Hyperglycemia, unspecified; M62.50 Muscle wasting and atrophy, not elsewhere classified, unspecified site
CPT/HCPCS: 36415; 71045-TC; 80048-TC; 80061-TC; 80202-TC; 80305; 81000-TC; 82746; 83735-TC; 84100-TC; 84134-TC; 84443-TC; 84484-TC; 85025-TC; 85730-TC; 87040-TC; 87081-TC; 87086-TC; 87186-TC; 92611-TC; 97116-TC; 97530-TC; A4216; A4606; J0696; J1631; J3370; J3480; J3490; J7060; Z7610

== ENCOUNTER 2017-11-20 19:16 | Inpatient (IN) | payer MEDICARE ==
[~2017-11-20] VITALS: Ht 160 cm; Wt 43.5 kg
[~2017-11-20 19:16] MED LIST: ACET-868 PO; AMIN30LI4 PO; AMLO10TA6 PO; BENA20TA9 PO; BISA10SU8 RC; CYCL30DR EACHEYE; DOCU-141 PO; FERR325T23 PO; LACT-215 PO; LORA1TAB PO; MAGN400O6 PO; MIRT15TA PO; MULT-447 PO; NA P133E RC; NITR100C6 PO; PANT40TA2 PO; POLY17PO4 PO; QUET100T PO; QUET25TA PO; RIVA1PAT3 TD; SACC250C PO
--- NOTE | 2017-11-20 19:18 | NUR ---
PT TO ER BED 11. BIB RA FROM [facility] FOR "BEING MORE ALTERED THAN USUAL". PER SNF STAFF PT NOT EATING OR DRINKING. PT PLACED IN GOWN AND ON FINANCIAL SALES ASSOCIATE. VSS/RESP EVEN UNLABORED/NAD NOTED/SKIN WARM AND DRY/FEBRILE/DENIES N-V-D. AWAITING MD GOSS.
--- NOTE | 2017-11-20 19:20 | NUR ---
AT BEDSIDE FOR EVAL.
--- NOTE | 2017-11-20 19:25 | NUR ---
EMT AT BEDSIDE FOR EKG.
--- NOTE | 2017-11-20 19:30 | NUR ---
16FR F/C INSERTED USING MOTORBOAT MECHANIC INBOARD/OUTBOARD, 100 ML JOSSELINE COLORED URINE NOTED. URINE SPECIMEN OBTAINED AND SENT TO THE LAB.
--- NOTE | 2017-11-20 19:45 | NUR ---
LAB AT BEDSIDE FOR DRAW.
[2017-11-20 19:51] LABS: APPEARANCE,URINE Clear (CLEAR); BILIRUBIN,URINE SMALL (NEGATIVE); BLOOD, URINE Trace-intact Ery/uL (NEGATIVE); COLOR,URINE Dark (YELLOW); KETONES,URINE Negative (NEGATIVE); LEUKOCYTE ESTERASE ,URINE Small (NEGATIVE); NITRITE, URINE Negative (NEGATIVE); PH,URINE 5.5 (5.0-8.0); PROTEIN,URINE Trace mg/dl (NEGATIVE); UGLUCOSE Negative (NEGATIVE); UROBILINOGEN,URINE 0.2 EU/dL (0.2)
[2017-11-20 19:58] LABS: BASOPHILS % (AUTO) 0.5 % (0.0-2.0); EOSINOPHILS % (AUTO) 0.9 % (0.0-6.0); HEMATOCRIT 35 % (33-45); HEMOGLOBIN 11.9 g/dL (11.5-14.8); LYMPHOCYTES # (AUTO) 1.1 /CMM (0.8-4.8); LYMPHOCYTES % (AUTO) 12.8 % (20.0-44.0); MEAN CORPUSCULAR HGB CONC 35 g/dl (31.0-36.0); MEAN CORPUSCULAR VOLUME 93 fL (82-100); MONOCYTES # (AUTO) 0.4 /CMM (0.1-1.30); NEUTROPHILS # (AUTO) 6.9 /CMM (1.8-8.9); NEUTROPHILS % (AUTO) 80.8 % (43.0-81.0); PLATELET COUNT (AUTO) 266 /CMM (150-450); RDW COEFFICIENT OF VARIATION 13.8 (11.5-15.0); WHITE BLOOD COUNT (AUTO) 8.5 K/uL (4.3-11.0)
--- NOTE | 2017-11-20 20:04 | NUR ---
SPOKE TO NURSING RESIDENTIAL COORDINATOR AND REQUESTED A TELE BED.
[2017-11-20 20:16] LABS: ALANINE AMINOTRANSFERASE 33 U/L (12-78); ALBUMIN 2.9 g/dL (3.4-5.0); ALKALINE PHOSPHATASE 106 U/L (46-116); ASPARTATE AMINOTRANSFERASE 19 U/L (15-37); BILIRUBIN,DIRECT 0.2 mg/dL (0.0-0.2); BILIRUBIN,TOTAL 0.6 mg/dL (0.2-1.0); CALCIUM, SERUM 9.3 mg/dL (8.5-10.1); CARBON DIOXIDE 28 mmol/L (21-32); CHLORIDE 112 mmol/L (98-107); CREATININE 1.3 mg/dL (0.6-1.3); GLUCOSE 128 mg/dL (74-106); POTASSIUM 3.3 mmol/L (3.5-5.1); SODIUM SERUM 147 mmol/L (136-145); TOTAL PROTEIN, SERUM 7.1 g/dL (6.4-8.2); UREA NITROGEN, BLOOD 27 mg/dL (7-18)
[2017-11-20 20:22] LABS: TROPONIN I < 0.017 ng/mL (0.00-0.056)
[2017-11-20 20:23] LABS: BACTERIA,URINE 1+ /HPF (None Seen); SQUAMOUS EPITHELIAL CELL,UR Few /HPF (None Seen)
[2017-11-20] MEDS ORDERED: CEFTRIAXONE 1GM BAG (ER ONLY) 1 GM/50 ML PIGGYBACK IV ONE (20:30)
[2017-11-20] MEDS ORDERED: IV NS 0.9% 250 ML BAG IV ONE (20:30)
[2017-11-20] MEDS ORDERED: CEFTRIAXONE 1GM BAG (ER ONLY) 50 ML IV ONE (20:31)
[2017-11-20] MEDS ORDERED: HALOPERIDOL LACTATE INJ 5 MG/ML VIAL ONE (20:51)
[2017-11-20 20:52] LABS: THYROID STIMULATING HORMONE 0.811 uIU/mL (0.358-3.74)
[2017-11-20] MEDS ORDERED: HALOPERIDOL LACTATE INJ 5 MG/ML VIAL IM ONE ×2 (21:00→22:00)
--- NOTE | 2017-11-20 21:43 | NUR ---
PT TO CT VIA STRETCHER. VSS.
--- NOTE | 2017-11-20 22:02 | NUR ---
PT BACK FROM CT.
--- NOTE | 2017-11-20 22:05 | NUR ---
PT IS ASSIGNED TO MARC RM: [id number], PT IS DIAGNOSED WITH AMS, AND ARIANE MCKEON IS THE ACCEPTING BI SOLUTIONS ARCHITECT.
--- NOTE | 2017-11-20 22:16 | NUR ---
CALLED [facility] FOR PANEL CALL AND ARIANE MCKEON WAS PAGED
--- NOTE | 2017-11-20 22:23 | NUR ---
PT GOING TO TELE 107.
--- NOTE | 2017-11-20 22:23 | NUR ---
REPORT GIVEN TO MAG YATES FOR FINN.
--- NOTE | 2017-11-20 22:35 | NUR ---
RN NOTE RECEIVED PATIENT FROM ER VIA MIR, ODALYS AMS, AWAKE, CONFUSED, ABLE TO STATE NAME, ANGRY/FEARFUL, ATTEMPTS TO REMOVE IV , LEFT WRIST 20 GAUGE IV, INTACT, WITH GOOD BLOOD RETURN, NO S/S OF INFECTION/INFILTRATION NOTED, NO RESPIRATORY DISTRESS NOTED, NO S/S OF PAIN OR DISCOMFORT NOTED, SR ON THE MONITOR, DIAPER, ALL SAFETY MEASURES TAKEN, CALL LIGHT WITHIN REACH, BED IN THE LOWEST POSITION, SIDE RAILS UP X 2, WILL CONTINUE TO MONITOR PATIENT
--- NOTE | 2017-11-20 22:41 | NUR ---
PT TRANSPORTED TO TELE 107 VIA STRETCHER ON AIR [place]OD[place] WITH RN PER ACLS PROTOCOL. VSS.
[2017-11-20 23:00] VITALS: BP 128/68
[2017-11-20] MEDS ORDERED: HYDROCODONE/APAP 5/325MG 1 EACH TABLET PO PRN (23:00)
[2017-11-20] MEDS ORDERED: Z GUARD REMEDY 2 OZ OINT TP PRN (23:00)
[2017-11-20] MEDS ORDERED: MAGNESIUM HYDROXIDE 30 ML UDC PO PRN (23:00)
[2017-11-20] MEDS ORDERED: POTASSIUM CHLORIDE 20 MEQ TAB.PRT.SR PO ONE (23:00)
[2017-11-20] MEDS ORDERED: ONDANSETRON HCL/PF 4 MG/2 ML VIAL IVP PRN (23:00)
[2017-11-20] MEDS ORDERED: MAG HYDROX/AL HYDROX/SIMETH 30 ML UDC PO PRN (23:00)
[2017-11-20] MEDS ORDERED: ACETAMINOPHEN 325 MG TABLET PO PRN (23:00)
[2017-11-20] MEDS ORDERED: BISACODYL SUPP (10 MG) 10 MG/SUPP.RECT SUPP.RECT RC PRN (23:00)
[2017-11-20] MEDS ORDERED: LORAZEPAM 1 MG TABLET PO PRN (23:00)
[2017-11-20] MEDS: IV 1/2NS 1000 ML 1,000 ML IV PRN (23:20)
--- NOTE | 2017-11-20 23:30 | NUR ---
RN NOTE PATIENT IS NPO, MEDICATION K-DUR POTASSIUM PO IS SCHEDULED, CALLED NAM THAKKAR TO CLARIFY ORDER, AWAITING FOR MAINTENANCE CLERK NAM TO CALL BACK
--- NOTE | 2017-11-20 23:40 | NUR ---
RN NOTE PER NAM DO NO ADMINISTER PO POTASSIUM MEDICATION UNTIL FURTHER ORDER, WILL CONTINUE MONITOR POTASSIUM LEVEL FOR NOW
[2017-11-21] VITALS (7 sets, daily range): BP systolic 128–171; BP diastolic 44–77
[2017-11-21 05:43] LABS: BASOPHILS % (AUTO) 0.3 % (0.0-2.0); HEMATOCRIT 33 % (33-45); HEMOGLOBIN 10.8 g/dL (11.5-14.8); LYMPHOCYTES # (AUTO) 1.2 /CMM (0.8-4.8); LYMPHOCYTES % (AUTO) 14.8 % (20.0-44.0); MEAN CORPUSCULAR HGB CONC 33 g/dl (31.0-36.0); MEAN CORPUSCULAR VOLUME 94 fL (82-100); MONOCYTES # (AUTO) 0.7 /CMM (0.1-1.30); MONOCYTES % (AUTO) 9.4 % (2.0-12.0); NEUTROPHILS # (AUTO) 5.7 /CMM (1.8-8.9); NEUTROPHILS % (AUTO) 73.5 % (43.0-81.0); PLATELET COUNT (AUTO) 241 /CMM (150-450); RDW COEFFICIENT OF VARIATION 14.8 (11.5-15.0); RED BLOOD CELL COUNT(AUTO) 3.46 MIL/uL (4.0-5.2); WHITE BLOOD COUNT (AUTO) 7.8 K/uL (4.3-11.0)
[2017-11-21 05:56] LABS: CALCIUM, SERUM 8.5 mg/dL (8.5-10.1); CARBON DIOXIDE 26 mmol/L (21-32); CHLORIDE 113 mmol/L (98-107); GLUCOSE 91 mg/dL (74-106); MAGNESIUM 2.3 mg/dL (1.8-2.4); PHOSPHORUS 2.9 mg/dL (2.5-4.9); SODIUM SERUM 148 mmol/L (136-145); UREA NITROGEN, BLOOD 21 mg/dL (7-18)
[2017-11-21 06:06] LABS: CHOLESTEROL 148 mg/dL (<200); HDL CHOLESTEROL 61 mg/dL (40-60); LDL 90 mg/dL (0-99); THYROID STIMULATING HORMONE 0.929 uIU/mL (0.358-3.74); TRIGLYCERIDES 113 mg/dL (30-150)
--- NOTE | 2017-11-21 07:30 | NUR ---
EXTRUSION DIE REPAIR MANAGER NOTE: RECEIVED PATIENT IN BED, ASLEEP AND AROUSABLE WITH TOUCH. PATIENT ON (B) SOFT WRIST RESTRAINTS DUE TO AGGRESSIVE OF BEHAVIOR AND SAFETY. PATIENT ON NPO AT THIS TIME DUE TO AMS. HOB ELEVATED. QUIET AT THIS TIME. ON TOOL AND DIE MACHINIST, SR HR=67. (R) WRIST IV LINE NOTED PATENT AND INTACT INFUSING 1/2 NS@50ML/HR. CALL LIGHT WITHIN REACH. NEEDS ANTICIPATED. ON CLOSE MONITORING WITH STAFF.
[2017-11-21] MEDS: PANTOPRAZOLE 40 MG TABLET.DR PO SCH (08:30)
[2017-11-21] MEDS: POTASSIUM CL. PREMIX PERIPHER. 50 ML IV SCH ×2 (08:43→09:45)
[2017-11-21] MEDS: LACTOBACILLUS RHAMNOSUS GG 1 EACH CAP.SPRINK PO SCH ×2 (08:55→16:21)
[2017-11-21] MEDS: DOCUSATE SODIUM 100 MG CAPSULE PO SCH (08:55)
[2017-11-21] MEDS: FERROUS SULFATE (325 MG) 325 MG/TAB TABLET PO SCH (08:56)
[2017-11-21] MEDS: ENSURE ENLIVE CHOC 237 ML CAN PO SCH ×2 (08:56→16:21)
[2017-11-21] MEDS: BENAZEPRIL HCL 20 MG TABLET PO SCH (08:56)
[2017-11-21] MEDS: POLYETHYLENE GLYCOL 3350 17 GM POWD.PACK PO SCH (08:57)
[2017-11-21] MEDS: AMLODIPINE BESYLATE 10 MG TABLET PO SCH (08:57)
[2017-11-21] MEDS: MULTIVIT, IRON, MIN NO. 8, FA 1 TAB PO SCH (08:58)
[2017-11-21] MEDS: QUETIAPINE FUMARATE 25 MG TABLET PO SCH ×3 (08:58→16:21)
[2017-11-21] MEDS: PROSOURCE / PROSTAT (PYXIS) 30 ML UDC PO SCH (08:58)
[2017-11-21] MEDS ORDERED: Medication Not On Formulary EA (Cyclosporine (Restasis) 1 DROP) EACHEYE SCH (09:00)
--- NOTE | 2017-11-21 11:23 | NUR ---
WOUND CARE CONSULT: PT PRESENTS WITH VERY BONY SACRAL AREA WITH SCARRING AND SKIN TEAR TO LEFT HAND. ALL SKIN PROTECTION MEASURES IN PLACE AND DISCUSSED WITH NURSING STAFF. PT ON JUAN ISOFLEX LOW AIRLOSS BED. WILL SEE PRN. CURRENT CHERYL SCORE IS 14. PT COMBATIVE AT TIMES. MD IN AGREEMENT WITH PLAN OF CARE. Addendum: 11/21/17 at 1124 by TIP SANTAMARIA WNDNU Amended: Links added.
--- NOTE | 2017-11-21 12:00 | NUR ---
SENIOR QUALITY ANALYST NOTE: YEISON MIRANDA WAS MADE AWARE THAT THE RD RECOMMENDED FOR THE PATIENT TO BE SEEN AND EVALUATED BY THE SPEECH THERAPIST FOR SWALLOW EVALUATION ONCE SHE GETS MORE ALERT. YEISON MIRANDA WAS MADE AWARE THAT THE PATIENT WAS AWAKE WITH INTERMITTENT CONFUSION AT THIS TIME. SINGING INTERMITTENTLY. DAUGHTERS PRESENT AT THE BEDSIDE. LOG MARKER AGREED WITH THE RD RECOMMENDATION AND GAVE AN ORDER, NOTED AND ACKNOWLEDGED.
--- NOTE | 2017-11-21 12:30 | NUR ---
IDENTIFICATION CLERK NOTE: CALLED AND SPOKE WITH THE REHAB PERSONNEL AND INFORMED HER ABOUT THE SWALLOW EVALUATION ORDER FOR THE PATIENT. ACCORDING TO HER, SHE WILL INFORM THE SPEECH THERAPIST ABOUT THE NEW EVAL ORDER AND WILL CALL BACK TO INFORM IF THE SPEECH THERAPIST CAN DO THE EVALUATION TODAY. AWAITING FOR THE CALL BACK.
--- NOTE | 2017-11-21 13:45 | NUR ---
BAR TACKER NOTE: PATIENT WAS NOTED W/ AGGRESSIVE BEHAVIOR, YELLING AND SCREAMING WITH ATTEMPTS OF REMOVING HER DIAPER AND IV LINE. INFORMED YEISON MIRANDA ABOUT IT AND RECEIVED AN ORDER FOR THE ATIVAN 1MG IV Q8HR PRN FOR ANXIETY.
[2017-11-21] MEDS: LORAZEPAM INJ 2 MG/ML VIAL IV PRN ×2 (13:50→23:46)
--- NOTE | 2017-11-21 15:00 | NUR ---
MANAGEMENT EXPERT NOTE: RECEIVED A CALL BACK FROM THE REHAB PERSONNEL AND ACCORDING TO HER THE SPEECH THERAPIST CAN NOT MAKE IT FOR TODAY DUE TO HER OTHER EVALUATIONS. BUT WILL FOR SURE COME BY TOMORROW MORNING TO EVALUATE THE PATIENT FOR SWALLOWING. YEISON MIRANDA WAS MADE AWARE.
[2017-11-21] MEDS: CEFTRIAXONE 1 G in IV D5W 50 ML IV SCH (19:19)
--- NOTE | 2017-11-21 19:20 | NUR ---
CLAIM SPECIALIST NOTE: PATIENT IN BED, AWAKE AND NOTED WITH EPISODES OF YELLING AND SCREAMING. PATIENT ON (B) SOFT WRIST RESTRAINTS DUE TO AGGRESSIVE OF BEHAVIOR AND SAFETY. PATIENT REMAINED ON NPO AT THIS TIME AND AWAITING FOR THE SWALLOW EVAL BY TOMORROW MORNING. HOB ELEVATED. ON FUNNEL SETTER, SR HR=63. (R) WRIST IV LINE NOTED PATENT AND INTACT INFUSING 1/2 NS@50ML/HR. CALL LIGHT WITHIN REACH. ON CLOSE MONITORING WITH STAFF. REPORT GIVEN TO PM SHIFT FOR CONTINUITY OF CARE.
--- NOTE | 2017-11-21 19:31 | NUR ---
RN NOTE RECEIVED PATIENT IN THE BED, SR ON THE MONITOR, STILL ON THE BILATERAL SOFT RESTRAINTS, REMOVED RESTRAINTS ONE BY ONE, KICKING, YELLING, REMOVING TUBING, PUT BILATERAL SOFT RESTRAINTS BACK, STILL NPO, NO PO MEDS UNTIL SWALLOW EVALUATION TOMORROW ACCORDING TO RUBEN FAIRCHILD AUTOMOBILE TAILLIGHT ASSEMBLER, ALL SAFETY MEASURES PROVIDED, BED IN THE LOWEST POSITION, CALL LIGHT WITHIN REACH, SIDE RAILS UP X 2, WILL CONTINUE TO MONITOR PATIENT
[2017-11-21] MEDS: QUETIAPINE FUMARATE 100 MG TABLET PO SCH (21:19)
[2017-11-21] MEDS: MIRTAZAPINE 15 MG TABLET PO SCH (21:19)
[2017-11-22] VITALS: BP 122/55
[2017-11-22] MEDS: IV 1/2NS 1000 ML 1,000 ML IV PRN (03:23)
[2017-11-22 04:00] VITALS: BP 155/59
[2017-11-22 06:31] LABS: BASOPHILS % (AUTO) 0.5 % (0.0-2.0); EOSINOPHILS % (AUTO) 3.7 % (0.0-6.0); HEMATOCRIT 35 % (33-45); HEMOGLOBIN 11.8 g/dL (11.5-14.8); LYMPHOCYTES # (AUTO) 1.5 /CMM (0.8-4.8); LYMPHOCYTES % (AUTO) 19.4 % (20.0-44.0); MEAN CORPUSCULAR HGB CONC 34 g/dl (31.0-36.0); MEAN CORPUSCULAR VOLUME 93 fL (82-100); MONOCYTES # (AUTO) 0.7 /CMM (0.1-1.30); MONOCYTES % (AUTO) 9.3 % (2.0-12.0); NEUTROPHILS # (AUTO) 5.2 /CMM (1.8-8.9); NEUTROPHILS % (AUTO) 67.1 % (43.0-81.0); PLATELET COUNT (AUTO) 255 /CMM (150-450); RDW COEFFICIENT OF VARIATION 14.2 (11.5-15.0); RED BLOOD CELL COUNT(AUTO) 3.73 MIL/uL (4.0-5.2); WHITE BLOOD COUNT (AUTO) 7.8 K/uL (4.3-11.0)
[2017-11-22 06:45] LABS: CALCIUM, SERUM 8.5 mg/dL (8.5-10.1); CARBON DIOXIDE 25 mmol/L (21-32); CHLORIDE 110 mmol/L (98-107); CREATININE 0.8 mg/dL (0.6-1.3); GLUCOSE 65 mg/dL (74-106); MAGNESIUM 2.1 mg/dL (1.8-2.4); PHOSPHORUS 2.4 mg/dL (2.5-4.9); POTASSIUM 4.4 mmol/L (3.5-5.1); SODIUM SERUM 144 mmol/L (136-145); UREA NITROGEN, BLOOD 14 mg/dL (7-18)
[2017-11-22] MEDS: PANTOPRAZOLE 40 MG TABLET.DR PO SCH (07:30)
[2017-11-22 08:00] VITALS: BP 151/68
[2017-11-22] MEDS: DOCUSATE SODIUM 100 MG CAPSULE PO SCH (08:14)
[2017-11-22] MEDS: POLYETHYLENE GLYCOL 3350 17 GM POWD.PACK PO SCH (08:15)
[2017-11-22] MEDS: PROSOURCE / PROSTAT (PYXIS) 30 ML UDC PO SCH (08:15)
[2017-11-22] MEDS: FERROUS SULFATE (325 MG) 325 MG/TAB TABLET PO SCH (08:15)
[2017-11-22] MEDS: BENAZEPRIL HCL 20 MG TABLET PO SCH (08:15)
[2017-11-22] MEDS: ENSURE ENLIVE CHOC 237 ML CAN PO SCH ×2 (08:15→17:00)
[2017-11-22] MEDS: QUETIAPINE FUMARATE 25 MG TABLET PO SCH ×3 (08:15→17:00)
[2017-11-22] MEDS: MULTIVIT, IRON, MIN NO. 8, FA 1 TAB PO SCH (08:15)
[2017-11-22] MEDS: AMLODIPINE BESYLATE 10 MG TABLET PO SCH (08:15)
[2017-11-22] MEDS: LACTOBACILLUS RHAMNOSUS GG 1 EACH CAP.SPRINK PO SCH ×2 (08:15→17:00)
[2017-11-22] MEDS: LORAZEPAM INJ 2 MG/ML VIAL IV PRN (11:04)
[2017-11-22 12:00] VITALS: BP 130/53
[2017-11-22] MEDS ORDERED: NEUTRA PHOS 1 POWD.PACKET PO ONE ×2 (14:00→14:30)
--- NOTE | 2017-11-22 15:40 | NUR ---
PER DR TAYLOR, PSYCH. HOLD SEROQUEL WHEN SEDATED.
--- NOTE | 2017-11-22 15:44 | NUR ---
CALLED PT DAUGHTER, DALTON, TO OBTAIN CONSENT FOR EGD WITH PEG. LEFT A MESSAGE WITH REQUEST TO HAVE HER CALL BACK. Addendum: 11/22/17 at 1914 by LIVAN HOLLINGSWORTH RN TELEPHONE CONSENT OBTAINED.
[2017-11-22 15:51] LABS: INR 1.01 (0.87-1.13)
[2017-11-22 16:00] VITALS: BP 124/67
--- NOTE | 2017-11-22 17:26 | NUR ---
PT TOO SEDATED TO TAKE PM MEDS. CALLED AND INFORMED . DR GARCIA AWARE. STATES TO CONTINUE TO HOLD SEROQUEL WHILE SEDATED PER DR POLLARD
--- NOTE | 2017-11-22 19:14 | NUR ---
NO SIGNIFICANT CHANGES IN PATIENT CONDITION THROUGHOUT THE SHIFT. NO SOB OR DISTRESS NOTED. PATIENT DOES NOT APPEAR TO BE IN PAIN, NO FACIAL GRIMACE NOTED. HEART RATE SR IN THE 70S. REPORT GIVEN TO NIGHT RN FOR FINN.
[2017-11-22 20:00] VITALS: BP 140/77
[2017-11-22] MEDS: CEFTRIAXONE 1 G in IV D5W 50 ML IV SCH (20:44)
[2017-11-22] MEDS: MIRTAZAPINE 15 MG TABLET PO SCH (22:27)
[2017-11-22] MEDS: QUETIAPINE FUMARATE 100 MG TABLET PO SCH (22:28)
[2017-11-23] VITALS (7 sets, daily range): BP systolic 99–154; BP diastolic 58–83
--- NOTE | 2017-11-23 07:10 | NUR ---
ETCHER APPRENTICE OPENING NOTE: PATIENT RECEIVED IN BED, AWAKE . PATIENT ON (B) SOFT WRIST RESTRAINTS DUE TO AGGRESSIVE OF BEHAVIOR AND SAFETY. PATIENT IS ON NPO AT THIS TIME AND AWAITING FOR PEG PLACEMENT. HOB ELEVATED. ON FIELD MECHANIC/SITE LEAD, SR HR=74. (R) WRIST IV LINE NOTED PATENT AND INTACT INFUSING 1/2 NS@50ML/HR. CALL LIGHT WITHIN REACH. SAFETY MAINTAINED. BED IS IN LOW AND LOCKED POSITION.CONTINUE TO MONITOR.
[2017-11-23] MEDS: PANTOPRAZOLE 40 MG TABLET.DR PO SCH (07:30)
[2017-11-23] MEDS: POLYETHYLENE GLYCOL 3350 17 GM POWD.PACK PO SCH (08:33)
[2017-11-23] MEDS: DOCUSATE SODIUM 100 MG CAPSULE PO SCH (08:34)
[2017-11-23] MEDS: ENSURE ENLIVE CHOC 237 ML CAN PO SCH ×2 (08:34→17:28)
[2017-11-23] MEDS: FERROUS SULFATE (325 MG) 325 MG/TAB TABLET PO SCH (08:34)
[2017-11-23] MEDS: BENAZEPRIL HCL 20 MG TABLET PO SCH (08:34)
[2017-11-23] MEDS: AMLODIPINE BESYLATE 10 MG TABLET PO SCH (08:34)
[2017-11-23] MEDS: LACTOBACILLUS RHAMNOSUS GG 1 EACH CAP.SPRINK PO SCH ×2 (08:34→17:28)
[2017-11-23] MEDS: MULTIVIT, IRON, MIN NO. 8, FA 1 TAB PO SCH (08:35)
[2017-11-23] MEDS: QUETIAPINE FUMARATE 25 MG TABLET PO SCH ×3 (08:35→17:00)
[2017-11-23] MEDS: PROSOURCE / PROSTAT (PYXIS) 30 ML UDC PO SCH (08:35)
[2017-11-23] MEDS: RIVASTIGMINE TARTRATE 4.6 MG PATCH.TD24 TD SCH (08:41)
--- NOTE | 2017-11-23 08:45 | NUR ---
ASSISTANT FARM OPERATIONS MANAGER NOTE GOT CALL FROM DAUGHTER AND TOLD TO INFORM THE SCHEDULED TIME FOR PEG PLACEMENT.INFORM HER THAT I WILL CALL HER ONCE I GOT SCHEDULE FROM OR.CALLED OR AND ASKED ABOUT THE PROCEDURE.THEY TOLD THAT PROCEDURE IS NOT SCHEDULED YET.TOLD TO CALL US ONCE HE GOT THE SCHEDULE TO INFORM THE FAMILY.
--- NOTE | 2017-11-23 09:40 | NUR ---
SCENE PAINTER NOTES SEEN BY DR GARCIA ,NOTIFIED THAT PATIENT KEPT NPO FOR PEG PLACEMENT.ON SOFT RESTRAINTS.NNO AT THIS TIME.CONTINUE WITH PRN MEDS IF RESIDENT GET AGITATED.
[2017-11-23] MEDS: LORAZEPAM INJ 2 MG/ML VIAL IV PRN (11:36)
--- NOTE | 2017-11-23 16:00 | NUR ---
DEPARTMENT HEAD COLLEGE OR UNIVERSITY NOTES SEEN BY DR VALDEZ INFORMED THAT PEG PLACEMENT RESCHEDULED FOR TOMORROW.TO START MEDS AND FEEDING USUAL AND NPO FROM POST MIDNIGHT.FAMILY INFORMED .TALKED TO DAUGHTER.SHE SAID SHE WILL FOLLOW UP WITH NIGHT NURSE AFTER 10PM ABOUT THE SCHEDULE FOR TOMORROW.
--- NOTE | 2017-11-23 19:00 | NUR ---
HIP HOP PERFORMERS OPENING NOTE: PATIENT IN BED, AWAKE . PATIENT ON (B) SOFT WRIST RESTRAINTS DUE TO AGGRESSIVE OF BEHAVIOR AND SAFETY. PATIENT IS ON NPO POST MIDNIGHT FOR PEG PLACEMENT. HOB ELEVATED. ON SALESPERSON FURS, SR HR=72. (R) WRIST IV LINE NOTED PATENT AND INTACT INFUSING 1/2 NS@50ML/HR. CALL LIGHT WITHIN REACH. SAFETY MAINTAINED. BED IS IN LOW AND LOCKED POSITION.WILL ENDORSE TO PM NURSE FOR FINN
[2017-11-23] MEDS: IV 1/2NS 1000 ML 1,000 ML IV PRN (20:19)
[2017-11-23] MEDS: CEFTRIAXONE 1 G in IV NS 0.9% 50 ML IV SCH (20:23)
[2017-11-23] MEDS: MIRTAZAPINE 15 MG TABLET PO SCH (22:01)
[2017-11-23] MEDS: QUETIAPINE FUMARATE 100 MG TABLET PO SCH (22:01)
[2017-11-24] VITALS: BP_SYST 120; BP_SYST 137; BP_DIAS 47; BP_DIAS 70
[2017-11-24 04:00] VITALS: BP 138/68
[2017-11-24] MEDS: PANTOPRAZOLE 40 MG TABLET.DR PO SCH (07:14)
--- NOTE | 2017-11-24 07:44 | NUR ---
ENTEROSTOMAL NURSE NOTE PT REMAINED STABLE DURING SHIFT. NO ACUTE DISTRESS NOTED. NPO OF MIDNIGHT. BILATERAL SOFT WRIST RESTRAINTS IN PLACE AND CIRCULATION CHECKED. BED ALARM ENABLED. WILL ENDORSE TO NEXT SHIFT FOR CONTINUITY OF CARE.
--- NOTE | 2017-11-24 07:45 | NUR ---
Tele/RN - Assessment Patient awake, alert to self, confused, reality orientation provided, bilateral soft wrist restraints in place to prevent pulling out oxygen and peripheral line, less restrictive measures implemented but ineffective. Tele shows SR, no s/s of pain, no apparent distress seen. IVF NS at 50 ml/hr infusing well on the RFA with no signs of infiltration. Patient scheduled for EGD with PEG placement today by Dr. Siddiqi, obtained telephone consent from daughter Apolinar. All needs attended and met. Fall precautions maintained. Will continue to monitor closely.
[2017-11-24 08:00] VITALS: BP 146/79
[2017-11-24] MEDS: DOCUSATE SODIUM 100 MG CAPSULE PO SCH (08:05)
[2017-11-24] MEDS: ENSURE ENLIVE CHOC 237 ML CAN PO SCH ×2 (08:06→16:29)
[2017-11-24] MEDS: FERROUS SULFATE (325 MG) 325 MG/TAB TABLET PO SCH (08:06)
[2017-11-24] MEDS: BENAZEPRIL HCL 20 MG TABLET PO SCH (08:06)
[2017-11-24] MEDS: LACTOBACILLUS RHAMNOSUS GG 1 EACH CAP.SPRINK PO SCH ×2 (08:06→16:28)
[2017-11-24] MEDS: PROSOURCE / PROSTAT (PYXIS) 30 ML UDC PO SCH (08:08)
[2017-11-24] MEDS: POLYETHYLENE GLYCOL 3350 17 GM POWD.PACK PO SCH (08:08)
[2017-11-24] MEDS: AMLODIPINE BESYLATE 10 MG TABLET PO SCH (08:08)
[2017-11-24] MEDS: QUETIAPINE FUMARATE 25 MG TABLET PO SCH ×3 (08:08→16:28)
[2017-11-24] MEDS: MULTIVIT, IRON, MIN NO. 8, FA 1 TAB PO SCH (08:08)
[2017-11-24] MEDS: RIVASTIGMINE TARTRATE 4.6 MG PATCH.TD24 TD SCH (08:42)
--- NOTE | 2017-11-24 10:30 | NUR ---
Tele/RN - Notes Per Dr. Vizcarra, possible discharge back to SNF today after procedure (EGD with PEG placement).
[2017-11-24 12:00] VITALS: BP 127/74
--- NOTE | 2017-11-24 12:00 | NUR ---
M/S RN - Notes Patient taken to GI lab for EGD with PEG tube insertion. RFA peripheral line is patent, intact, with no signs of infiltration. Patient still on bilateral soft wrist restraint to prevent pulling out lines. Pre-op checklist completed, telephone consent obtained from daughter Apolinar Jeffers. Patient endorsed to OR staff accordingly.
[2017-11-24] MEDS ORDERED: FENTANYL PF 100MCG/2ML AMPUL ONE (12:11)
--- NOTE | 2017-11-24 13:15 | NUR ---
Tele/RN- Notes Patient came back from surgery in stable condition, awake, alert to self, remain on bilateral soft wrist restraints, monitored and observed per protocol. EGD shows gastritis, duodenitis, esophagitis - biopsied to r/o Naya. Post-op orders noted and carried out. Ok to use PEG for meds, start tube feeding tonight at 19:00. Family at bedside updated on plan of care.
[2017-11-24 16:00] VITALS: BP 148/79
--- NOTE | 2017-11-24 18:30 | NUR ---
Tele/RN - Notes Patient for discharge back to [facility]. Per CM, ambulance ETA 20:30. Daughter made aware of discharge order. Patient afebrile, remain confused, bilateral soft wrist restraint in place, monitored per protocol. Patient able to tolerate medications given via PEG tube, aspiration precautions maintained. Discharge papers completed. Will endorse to night RN accordingly.
--- NOTE | 2017-11-24 19:08 | NUR ---
Tele/RN - Notes Awaiting for tube feeding to be delivered. Patient combative, unable to take discharge photos on skin breakdown. Endorsed to night RN for continuity of care.
[2017-11-24 20:00] VITALS: BP 157/98
--- NOTE | 2017-11-24 20:00 | NUR ---
RN INITIAL NOTE: PATIENT IN BED, AWAKE . PATIENT ON (B) SOFT WRIST RESTRAINTS DUE TO AGGRESSIVE OF BEHAVIOR AND SAFETY. PATIENT IS ON PIT SLAGMAN, SR HR=72. (R) WRIST IV LINE NOTED PATENT AND INTACT INFUSING 1/2 NS@50ML/HR. CALL LIGHT WITHIN REACH. SAFETY MAINTAINED. BED IS IN LOW AND LOCKED POSITION.WILL CONT TO MONITOR.
--- NOTE | 2017-11-24 20:35 | NUR ---
RN NOTES STARTED TUBE FEEDING, GLUCERNA 1.2 @10 ML ORDERED.
[2017-11-24] MEDS: CEFTRIAXONE 1 G in IV NS 0.9% 50 ML IV SCH (20:37)
[2017-11-24] MEDS: QUETIAPINE FUMARATE 100 MG TABLET PO SCH (21:04)
[2017-11-24] MEDS: MIRTAZAPINE 15 MG TABLET PO SCH (21:05)
[2017-11-24] MEDS: LORAZEPAM INJ 2 MG/ML VIAL IV PRN (21:09)
--- NOTE | 2017-11-24 21:30 | NUR ---
RN NOTES I RECEIVED REPORT THAT PT WAS TO BE DISCHARGED TO [facility], [facility] [employer] [facility]. I MADE SEVERAL ATTEMPTS TO CALL REPORT TO [facility]. I WAS TOLD BY THE RN I SPOKE WITH THAT SHE WAS NOT AWARE THAT THE PT WAS GOING TO BE TRANSFERRED TO THE FACILITY [facility]. I INFORMED THE RN AT [facility] THAT CASE MANGER AUTHOR AT [facility], SPOKE WITH FAISAL IN ADMINISTRATION AT [facility]. I CALLED BACK AFTER SPEAKING TO KRISTEN, CHARGE NURSE WHO STATED THAT A BED HOLD WAS AT [facility] FOR THE PT. THE RN AT [facility] STATED THAT SHE WAS NOT AWARE AND, SHE WAS GOING TO CALL HER D.O.N AND CALL US BACK AT [facility], [facility]. I CALLED BACK A THIRD TIME AND THE RN STATED THAT SHE WAS UNABLE TO REACH HER DON AND SHE WAS UNABLE TO RECEIVE THE PT. UNTIL SHE SPOKE TO HER DON. I TURNED OVER THE CALL TO KRISTEN CHARGE NURSE ON [facility].
--- NOTE | 2017-11-24 22:00 | NUR ---
RN NOTES PATIENT WITH PLANNED DISCHARGE TONIGHT BACK TO SNF. HOWEVER WHEN THE PRIMARY RN WAS ATTEMPTING TO GIVE REPORT TO [facility], THEY STATED THAT THEY WERE NOT AWARE OF THE PATIENT'S READMITTANCE TO THEIR FACILITY. CALLED AND LEFT A MESSAGE TO [facility]. HAS NOT RECEIVED ANY CALL BACK YET. NURSING DUE DILIGENCE COORDINATOR MADE AWARE. ALSO RECEIVED A CALL FROM FAISAL, INTAKE PERSON FROM [facility]. FAISAL INFORMED CHARGE NURSE THAT THEY HAVE NOT RECEIVED ANY INQUIRY AND CALL FROM [facility] CASE MANAGEMENT WITH REGARDS TO THE PATIENT'S PLAN FOR DISCHARGE BACK TO SNF. PER FAISAL, SHE WILL CALL [facility] BUT UNTIL THEN, THEY ARE UNABLE TO TAKE THE PATIENT UNTIL CLARIFIED. [facility] TO CALL US BACK. NOTED.
--- NOTE | 2017-11-24 23:50 | NUR ---
RN NOTES INFORMED DR. TERENCE LEWIS THAT THE PATIENT WAS SUPPOSED TO BE DISCHARGED TONIGHT, BACK TO SNF AT [facility], HOWEVER PER SNF THEY HAVE NOT RECEIVED ANY INQUIRY OF THE PATIENT COMING BACK TO THEM. THEY ARE UNABLE TO ACCEPT THE PATIENT AT THIS TIME. DR. PRATT MADE AWARE, D/C ORDER HELD AND TO F/UP IN AM WITH HYDRAULIC ROCKBREAKER OPERATOR. NOTED.
[2017-11-25] VITALS: BP 120/47
[2017-11-25] MEDS: IV 1/2NS 1000 ML 1,000 ML IV PRN (03:58)
[2017-11-25 04:00] VITALS: BP 174/110
[2017-11-25] MEDS: PANTOPRAZOLE 40 MG TABLET.DR PO SCH (07:30)
--- NOTE | 2017-11-25 07:42 | NUR ---
RN OPEN NOTES RECEIVED REPORT FROM WIRE BORDER ASSEMBLER NURSE. PATIENT IS IN BED WITH HER EYES CLOSED. AROUSED TO CALLING HER NAME AND LIGHT TOUCH. IV FLUIDS IN ML/HR AND GASTRIC TUBE ML/HR WITH A GOAL FEEDING AT 50ML/HR TO BE INCREASE Q4HR. WILL INCREASE TO 40ML/HR AT 10:30AM. PATIENT IS ON BILATERAL WRIST SOFT RESTRAINT. ON ROOM AIR, BREATHING BILATERALLY EVEN. BED IN LOW POSITION, LOCKED AND TWO SIDE RAILS ARE UP FOR SAFETY. EDWARDO LIGHT WITHIN REACH FOR SAFETY. WILL CONTINUE TO ASSESS AND MONITOR PATIENT. POSSIBLE D/C IN. WILL F/U WITH JEREMY
[2017-11-25 08:00] VITALS: BP 147/77
[2017-11-25] MEDS: QUETIAPINE FUMARATE 25 MG TABLET PO SCH ×3 (08:05→16:40)
[2017-11-25] MEDS: PROSOURCE / PROSTAT (PYXIS) 30 ML UDC PO SCH (08:05)
[2017-11-25] MEDS: LACTOBACILLUS RHAMNOSUS GG 1 EACH CAP.SPRINK PO SCH ×2 (08:05→16:40)
[2017-11-25] MEDS: MULTIVIT, IRON, MIN NO. 8, FA 1 TAB PO SCH (08:05)
[2017-11-25] MEDS: POLYETHYLENE GLYCOL 3350 17 GM POWD.PACK PO SCH (08:05)
[2017-11-25] MEDS: ENSURE ENLIVE CHOC 237 ML CAN PO SCH ×2 (08:05→16:40)
[2017-11-25] MEDS: DOCUSATE SODIUM 100 MG CAPSULE PO SCH (08:06)
[2017-11-25] MEDS: BENAZEPRIL HCL 20 MG TABLET PO SCH (08:06)
[2017-11-25] MEDS: FERROUS SULFATE (325 MG) 325 MG/TAB TABLET PO SCH (08:06)
[2017-11-25] MEDS: AMLODIPINE BESYLATE 10 MG TABLET PO SCH (08:06)
[2017-11-25] MEDS: RIVASTIGMINE TARTRATE 4.6 MG PATCH.TD24 TD SCH (08:06)
--- NOTE | 2017-11-25 08:07 | NUR ---
PATIENT HAS A NEW GASTRIC TUBE. UNABLE TO CRUSH PROTONIX, IRON OR COLACE. WILL SPEAK WITH
[2017-11-25] MEDS ORDERED: GLUCERNA 1.2 1,000 ML BOTTLE PEG SCH (10:00)
--- NOTE | 2017-11-25 10:30 | NUR ---
FEEDING INCREASED TO 40ML/HR. NO RESIDUAL
--- NOTE | 2017-11-25 10:50 | NUR ---
BLADDER DISTENDED. BLADDER SCAN COMPLETED, 394ML.
--- NOTE | 2017-11-25 11:15 | NUR ---
DR SANTOS AT BEDSIDE. ORDER IS TO STRAIGHT CATH THE PATIENT. - STRAIGHT CATH COMPLETED, 320ML REMOVED.
--- NOTE | 2017-11-25 11:28 | NUR ---
DR SANTOS AT BEDSIDE LOOKING AT THE KUB RESULTS
[2017-11-25] MEDS ORDERED: POLYETHYLENE GLYCOL 3350 17 GM POWD.PACK PO ONE (11:30)
[2017-11-25] MEDS ORDERED: BISACODYL SUPP (10 MG) 10 MG/SUPP.RECT SUPP.RECT RC ONE (11:30)
[2017-11-25 12:00] VITALS: BP 109/63
--- NOTE | 2017-11-25 12:10 | NUR ---
HOLDING DISCHARGE TILL PATIENT IS ABLE TO URINATE INDEPENDENTLY AND HAVING A BOWEL MOVEMENT
--- NOTE | 2017-11-25 12:30 | NUR ---
MIRALAX AND SUPPOSITORY ADMINISTERED PER ORDER
--- NOTE | 2017-11-25 14:30 | NUR ---
FEEDING INCREASED TO 50ML/HR. GOAL REACHED. PATIENT TOLERATING WELL
--- NOTE | 2017-11-25 15:00 | NUR ---
PER DR GARCIA, DISCHARGE PATIENT. NO NEED TO [facility].
--- NOTE | 2017-11-25 17:00 | NUR ---
GREEN FEED ATTENDANT ORDER DISCHARGE ORDER RECEIVED AND CARRIED OUT. PATIENT IS LEAVING IN A STABLE CONDITION. TOLERATE GASTRIC TUBE VERY WELL AT 50 ML/HR WITH ZERO RESIDUAL. DISCHARGE INSTRUCTION GAVE TO MAG EVANS AT [facility]. PATIENT IS GOING TO ROOM 2C. ALL PERSONAL BELONGING WITH PATIENT AT TIME OF DISCHARGE. PATIENT UNABLE TO SIGN FORMS DUE TO MENTAL STATUS. IV SITE REMOVED. PATIENT PICKED UP BY AN AMBULANCE AND TWO data capture specialist. DAUGHTER LEIGHTON AND DALTON MADE AWARE AND NOTIFIED PRIOR TO DISCHARGE.
== END 2017-11-25 17:10 | DRG 689 ==
LOC: ER 19:18 → TELE1 20:34
PROVIDERS: ADMIT Nurse Practitioner Acute Care; ATTEND Nurse Practitioner Acute Care
PROC: 0DB58ZX Excision of Esophagus, Via Natural or Artificial Opening Endoscopic, Diagnostic (ICD-10-PCS; 2017-11-24)
PROC: 0DB68ZX Excision of Stomach, Via Natural or Artificial Opening Endoscopic, Diagnostic (ICD-10-PCS; 2017-11-24)
PROC: 0DH63UZ Insertion of Feeding Device into Stomach, Percutaneous Approach (ICD-10-PCS; principal; 2017-11-24 12:00)
DX: N39.0 Urinary tract infection, site not specified (principal); N17.0 Acute kidney failure with tubular necrosis; G92 Toxic encephalopathy; E44.0 Moderate protein-calorie malnutrition; E87.0 Hyperosmolality and hypernatremia; Z68.1 Body mass index [BMI] 19.9 or less, adult; F03.91 Unspecified dementia, unspecified severity, with behavioral disturbance; I25.10 Atherosclerotic heart disease of native coronary artery without angina pectoris; E11.9 Type 2 diabetes mellitus without complications; E78.5 Hyperlipidemia, unspecified; K21.0 Gastro-esophageal reflux disease with esophagitis; K29.70 Gastritis, unspecified, without bleeding; R62.7 Adult failure to thrive; I10 Essential (primary) hypertension; Z66 Do not resuscitate; R53.1 Weakness; E88.09 Other disorders of plasma-protein metabolism, not elsewhere classified; F41.9 Anxiety disorder, unspecified; F32.9 Major depressive disorder, single episode, unspecified; S61.412A Laceration without foreign body of left hand, initial encounter; X58.XXXA Exposure to other specified factors, initial encounter; Y93.9 Activity, unspecified; Y92.129 Unspecified place in nursing home as the place of occurrence of the external cause; E86.0 Dehydration; K29.80 Duodenitis without bleeding; S61.512A Laceration without foreign body of left wrist, initial encounter; E87.6 Hypokalemia
CPT/HCPCS: 36415; 43246; 70450-TC; 71045-TC; 74018; 80048-TC; 80061-TC; 80076-TC; 80305; 81000-TC; 82140-TC; 82962-TC; 83605-TC; 83735-TC; 84100-TC; 84443-TC; 84484-TC; 85025-TC; 85610-TC; 87040-TC; 87081-TC; 87086-TC; 88305-TC; 88313-TC; 88342; 92611-TC; A4216; A4606; J0696; J1630; J2060; J3010; J3480; J3490; J7040; J7060; Z7610